=== PATIENT | female | born 1955 | race Caucasian/White ===

== ENCOUNTER 2022-02-11 08:25 | Outpatient (CLI) | payer OTHER | END 2022-02-11 08:34 | disposition home or self-care (01) | LOC: RX STUDY 08:25 | PROVIDERS: ATTEND Internal Medicine Gastroenterology | DX: K56.600 Partial intestinal obstruction, unspecified as to cause (principal); K57.92 Diverticulitis of intestine, part unspecified, without perforation or abscess without bleeding ==

== ENCOUNTER 2022-02-18 07:37 | Outpatient (CLI) | payer OTHER | END 2022-02-18 07:42 | disposition home or self-care (01) | LOC: TOM 07:37 | DX: R51.9 Headache, unspecified (principal); R53.1 Weakness ==